=== PATIENT | female | born 1990 | race Caucasian/White ===

== ENCOUNTER 2016-10-23 15:00 | Emergency (ER) | payer BC ==
[2016-10-23 15:08] VITALS: RESP 20
[2016-10-23] MEDS ORDERED: Albuterol-Ipratrop 3 mg / 0.5 (3 ml) UD IH STA (15:28)
[2016-10-23] MEDS ORDERED: Promethazine/Cod 6.25mg-10mg/5ml Syr UD PO STA (15:28)
--- NOTE | 2016-10-23 15:38 | C.PDOC ---
History Of Present Illness 26 yo female w/PMHx of asthma come in for evaluation of URI sx for past 3-4 days associated with nasal congestion, dry cough gradually worsen. For past few days, developed chest tightness with intermittent wheezing. use neb tx at home without improvement in asthma sx. Otherwise, pt denies fever, chills, headache, dizziness, drooling, dysphagia, dyspnea, SOB, abd. pain, V/D, back pain. Ambulate to Ed for evaluation, not in nay apparent distress. Time Seen by Provider: 10/23/16 15:21 Chief Complaint (Nursing): Shortness Of Breath History Per: Patient History/Exam Limitations: no limitations Onset/Duration Of Symptoms: Days, Gradual Current Symptoms Are (Timing): Still Present Severity: Mild Associated Symptoms: denies: Fever, Chills, Dizziness Recent travel outside of the [place]: No Past Medical History Reviewed: Historical Data, Nursing Documentation, Vital Signs Vital Signs: Last Vital Signs Temp 98 F 10/23/16 15:08 Pulse 62 10/23/16 15:08 Resp 20 10/23/16 15:30 BP 124/78 10/23/16 15:08 Pulse Ox 99 10/23/16 15:46 Family History: States: Unknown Family Hx Review Of Systems Except As Marked, All Systems Reviewed And Found Negative. Constitutional: Negative for: Fever, Chills ENT: Positive for: Nose Congestion, Other (no drooling) Cardiovascular: Negative for: Chest Pain Respiratory: Positive for: Cough, Wheezing (intermittent), Other (chest tightness). Negative for: Shortness of Breath Gastrointestinal: Negative for: Vomiting, Abdominal Pain, Diarrhea Musculoskeletal: Negative for: Back Pain Neurological: Negative for: Headache, Dizziness Physical Exam - Physical Exam Appears: Well, Non-toxic, No Acute Distress Skin: Normal Color, Warm, Dry, No Rash Eye(s): bilateral: Normal Inspection Nose: Normal, No Discharge Oral Mucosa: Moist Throat: Normal, No Erythema, No Exudate, No Drooling Neck: Normal, Normal ROM, Supple Cardiovascular: Rhythm Regular Respiratory: No Decreased Breath Sounds, No Accessory Muscle Use, No Rales, No Rhonchi, No Stridor, Wheezing (Right basilar expiratory wheezing. BS equal B/L.) Gastrointestinal/Abdominal: Normal Exam, Soft, No Tenderness Back: Normal Inspection, No CVA Tenderness Extremity: Normal ROM, No Pedal Edema Neurological/Psych: Oriented x3, Normal Speech ED Course And Treatment O2 Sat by Pulse Oximetry: 99 (on room air) Pulse Ox Interpretation: Normal - Radiology CXR: Interpreted by Me (IMPRESSION: normal), Viewed By Me CXR Interpretation: Yes: No Acute Disease Progress Note: On re-eavluation, pt is afebrile, hemodynamicaly stable. Non- toic. PulsEOx 99% RA. ENT: no acute findings. Neck: (-) meningeal sign. Lungs: mod improvement in wheezing. BS equal B/L. ABd: benign. CXR- normal findings. Pt has clinical findings c/w bronchitis, asthma exacerbation. Pt advised. ref to F/u with PMD In 2-3 days for re-eval. return if any new changes. Disposition Counseled Patient/Family Regarding: Studies Performed, Diagnosis, Need For Followup, Rx Given - Disposition Referrals: [facility] [Outside] Disposition: HOME/ ROUTINE Disposition Time: 16:40 Condition: STABLE Additional Instructions: Encourage fluids Take medication as prescribed Follow up with PMD In 2-3 days for re-evaluation. Return to ED if any worsening or new changes. Prescriptions: Albuterol 0.083% [Albuterol 0.083% Inhal Kenisha (2.5 mg/3 ml) UD] 2.5 mg IH Q6 #50 neb Prednisone [Deltasone] 40 mg PO DAILY #6 tablet Promethazine/Codeine [Codeine/Promethazine 10 MG/5 Ml-6.25 MG/5 Ml] 10 ml PO Q6 #80 ml Azithromycin [Zithromax] 250 mg PO DAILY #4 tab Instructions: Acute Bronchitis (ED), Asthma (ED) - Clinical Impression Clinical Impression: Bronchitis, Asthma - PA / UMBRELLA TIPPER / Resident Statement MD/DO has reviewed & agrees with the documentation as recorded. - Scribe Statement The provider has reviewed the documentation as recorded by the Nahed Flores All medical record entries made by the Scribe were at my direction and personally dictated by me. I have reviewed the chart and agree that the record accurately reflects my personal performance of the history, physical exam, medical decision making, and the department course for this patient. I have also personally directed, reviewed, and agree with the discharge instructions and disposition.
[2016-10-23] MEDS ORDERED: Albuterol-Ipratrop 3 mg / 0.5 (3 ml) UD ONE (16:04)
[2016-10-23] MEDS ORDERED: Promethazine/Cod 6.25mg-10mg/5ml Syr UD ONE (16:04)
--- NOTE | 2016-10-23 16:40 | RAD ---
HISTORY: Cough COMPARISON: No prior. TECHNIQUE: Chest PA and lateral FINDINGS: LUNGS: No focal airspace opacity. PLEURA: No significant pleural effusion identified. No pneumothorax apparent. CARDIOVASCULAR: Normal. OSSEOUS STRUCTURES: No significant abnormalities. VISUALIZED UPPER ABDOMEN: Normal. OTHER FINDINGS: None. IMPRESSION: No focal airspace opacity.
[2016-10-23 16:51] VITALS: BP 118/82; PULSE 63; TEMP 97.7; O2SAT 100
== END 2016-10-23 16:53 | disposition home or self-care (01) ==
LOC: C.ER 15:00
DX: J45.901 Unspecified asthma with (acute) exacerbation (principal)

== ENCOUNTER 2017-01-16 08:17 | Emergency (ER) | payer BC, OTHER ==
[2017-01-16 08:27] VITALS: BP 118/83; PULSE 75; TEMP 98; O2SAT 98
--- NOTE | 2017-01-16 09:49 | C.PDOC ---
History Of Present Illness Patient is a 26 y/o female that presents to the ED for evaluation of right sided back pain radiating down to her legs for the last 2 weeks. Pt states pain is worse today, 10/10 in severity which prompted to her visit ED today. Pt states pain is sharp, throbbing, and constant in nature, and is worse with movement, and laying down. Otherwise, denies any fever, chills, cough, n/v/d, bowel or bladder incontinence/retention, focal weakness, sensory deficit, gait dysfunction, hematuria or dysuria. Time Seen by Provider: 01/16/17 08:27 Chief Complaint (Nursing): Back Pain History Per: Patient History/Exam Limitations: no limitations Onset/Duration Of Symptoms: Days (2 weeks), Persistent Current Symptoms Are (Timing): Still Present Quality Of Discomfort: "Pain" Associated Symptoms: None. denies: Incontinence, New Weakness, New Numbness Exacerbating Factor(s): Movement, Other (laying down) Recent travel outside of the [place]: No Additional History Per: Patient Past Medical History Reviewed: Historical Data, Nursing Documentation, Vital Signs Vital Signs: Last Vital Signs Temp 98 F 01/16/17 08:21 Pulse 75 01/16/17 08:21 Resp 18 01/16/17 10:00 BP 118/83 01/16/17 08:21 Pulse Ox 98 01/16/17 10:16 - Medical History PMH: Asthma Family History: States: Unknown Family Hx - Social History Hx Alcohol Use: Yes Hx Substance Use: No - Immunization History Hx Tetanus Toxoid Vaccination: No Hx Influenza Vaccination: No Review Of Systems Except As Marked, All Systems Reviewed And Found Negative. Constitutional: Negative for: Fever, Chills Gastrointestinal: Negative for: Nausea, Vomiting, Abdominal Pain, Diarrhea Genitourinary: Negative for: Dysuria, Frequency, Incontinence, Hematuria Musculoskeletal: Positive for: Back Pain Neurological: Negative for: Weakness, Numbness Physical Exam - Physical Exam Appears: Non-toxic, Other (painful distress) Skin: Normal Color, Warm, Dry, No Rash Head: Atraumatic, Normacephalic Eye(s): bilateral: Normal Inspection, EOMI Neck: Normal ROM, Supple Chest: Symmetrical Cardiovascular: Rhythm Regular, No Murmur Respiratory: Normal Breath Sounds, No Rales, No Rhonchi, No Wheezing Gastrointestinal/Abdominal: Soft, No Tenderness Back: Normal Inspection, No CVA Tenderness, No Vertebral Tenderness, No Paraspinal Tenderness Extremity: Normal ROM, No Tenderness, Capillary Refill (< 2 sec.), No Deformity Neurological/Psych: Oriented x3, Normal Speech, Normal Cognition ED Course And Treatment O2 Sat by Pulse Oximetry: 98 (on RA) Pulse Ox Interpretation: Normal Progress Note: Pt was given Flexeril PO, and Tylenol PO in the ER. On re-exam, pt reports improvement of back pain, no fever, no bony tenderness, no numbness, no weakness, or abdominal pain. Patient is ambulatory in the emergency department with no signs of discomfort. Patient was advised to follow up with their physician in 1-2 days. Disposition Counseled Patient/Family Regarding: Diagnosis, Need For Followup, Rx Given - Disposition Disposition: HOME/ ROUTINE Disposition Time: 09:49 Condition: STABLE Prescriptions: Cyclobenzaprine [Cyclobenzaprine HCl] 10 mg PO TID #12 tab Prednisone [Deltasone] 40 mg PO DAILY #12 tablet Instructions: Sciatica (ED), Back Exercises (ED) Forms: General Discharge Instructions, Work Excuse - POA Present On Arrival: None - Clinical Impression Clinical Impression: Low back pain, Sciatica - Scribe Statement The provider has reviewed the documentation as recorded by the Nahed Guido All medical record entries made by the Nahed were at my direction and personally dictated by me. I have reviewed the chart and agree that the record accurately reflects my personal performance of the history, physical exam, medical decision making, and the department course for this patient. I have also personally directed, reviewed, and agree with the discharge instructions and disposition.
[2017-01-16 10:05] VITALS: RESP 18
== END 2017-01-16 10:05 | disposition home or self-care (01) ==
LOC: C.ER 08:17
DX: M54.5 Low back pain (principal); M54.30 Sciatica, unspecified side